=== PATIENT | male | born 1955 | race Caucasian/White ===

== ENCOUNTER → 2020-03-01 | Outpatient (CLI) | payer OTHER ==
[~2020-03-01] MED LIST: ASPI81TA26 PO; ATOR80TA59 PO; CLOP75TA2 PO; HYDR25TAB PO; LOSA50TA88 PO; MAG400TA PO; METF500T13 PO; METO100T5 PO; NICO21DI37 TD; OXYC1TAB23 PO; RANO10002 PO
== END ==
LOC: M LABSMTC 09:29
PROVIDERS: ATTEND Orthopaedic Surgery
DX: Z01.818 Encounter for other preprocedural examination (principal); Z11.59 Encounter for screening for other viral diseases
CPT/HCPCS: C9803; U0003

== ENCOUNTER 2020-03-06 11:58 | Day surgery (SDC) | payer OTHER ==
[~2020-03-06] VITALS: Ht 170.2 cm; Wt 82.6 kg
[2020-03-06] MEDS ORDERED: dexameTHASONE 10MG/1ML VIAL PRES.FREE (J1100 PER 1MG) ONE (11:59)
[2020-03-06] MEDS ORDERED: LIDOCAINE 1% MDV 20ML VIAL ONE (11:59)
[2020-03-06] MEDS ORDERED: ROPIvacaine 0.5% 30ML INJECTION (J2795 PER 1MG) ONE (11:59)
[2020-03-06] MEDS ORDERED: fentaNYL 100 MCG/2 ML INJECTION (J3010) As Ordered ONE ×2 (12:11→12:56)
[2020-03-06] MEDS ORDERED: LIDOCAINE 2% 100MG/5ML SDV (FOR ANES.) As Ordered ONE (12:11)
[2020-03-06] MEDS ORDERED: propofoL 200 MG/20 ML VIAL As Ordered ONE (12:11)
[2020-03-06] MEDS ORDERED: ROCURONIUM BROMIDE 50 MG/5 ML VIAL As Ordered ONE (12:11)
[2020-03-06] MEDS ORDERED: MIDAZOLAM INJ 2MG/2ML VIAL (J2250 PER 1MG) As Ordered ONE ×2 (12:11→12:56)
[2020-03-06] MEDS ORDERED: ALBUTEROL SULFATE 2.5 MG/0.5 ML INH NEB SOLN As Ordered ONE (12:43)
[2020-03-06] MEDS ORDERED: LR 1,000 ML IV ONE (12:45)
[2020-03-06] MEDS ORDERED: EPINEPHrine 1MG/ML INJ 30ML MD-VIAL As Ordered ONE (13:00)
[2020-03-06] MEDS ORDERED: ALBUTEROL SULFATE 2.5 MG/0.5 ML INH NEB SOLN INH ONE (13:00)
[2020-03-06] MEDS ORDERED: LIDOCAINE 1% MDV 20ML VIAL As Ordered ONE (13:17)
[2020-03-06] MEDS ORDERED: fentaNYL 100 MCG/2 ML INJECTION (J3010) IV ONE (13:30)
[2020-03-06] MEDS ORDERED: MIDAZOLAM INJ 2MG/2ML VIAL (J2250 PER 1MG) IV ONE (13:30)
[2020-03-06] MEDS ORDERED: ceFAZolin 2 GM/D5W 50 ML IV BAG (J0690 PER 500MG) As Ordered ONE (13:50)
[2020-03-06] MEDS ORDERED: PHENYLephrine HCL 500 MCG/5 ML (100MCG/ML) SYRINGE (J2370) As Ordered ONE (13:53)
[2020-03-06] MEDS ORDERED: ePHEDrine SULFATE 25 MG/5 ML(5MG/ML) SYRINGE As Ordered ONE ×2 (13:53→14:00)
[2020-03-06] MEDS ORDERED: GLYCOPYRROLATE INJ 0.2 MG/ML 2 ML VIAL As Ordered ONE (13:56)
[2020-03-06] MEDS ORDERED: METOCLOPRAMIDE INJ 10MG/2ML VIAL (J2765 PER 1) As Ordered ONE (14:01)
[2020-03-06] MEDS ORDERED: ONDANSETRON 4MG/2ML VIAL As Ordered ONE ×2 (14:01→14:22)
[2020-03-06] MEDS ORDERED: PHENYLEPHRINE 10MG/ML 1ML VIAL (J2370 PER 1) As Ordered ONE (15:06)
[2020-03-06] MEDS ORDERED: HYDROMORPHONE HCL 0.5 MG/ 0.5 ML SYRINGE (J1170 PER 1) IV PRN (17:00)
[2020-03-06] MEDS ORDERED: LR 1,000 ML IV SCH ×2 (17:00)
[2020-03-06] MEDS ORDERED: ONDANSETRON 4MG/2ML VIAL IV PRN (17:00)
[2020-03-06] MEDS ORDERED: fentaNYL 100 MCG/2 ML INJECTION (J3010) IV PRN (17:00)
[2020-03-06] MEDS: oxyCODONE 5MG TAB PO PRN ×2 (17:25→18:00)
--- NOTE | 2020-03-07 14:02 | REP ---
Single portable ap view of the left shoulder was obtained status post closed reduction. Previously described proximal humeral fracture has been reduced. The alignment is significantly improved. Electronically Signed by Maulik Brewer DO 03/07/2020 04:26 P
--- NOTE | 2020-07-01 07:19 | RO ---
DATE OF OPERATION: 03/06/2020 PREOPERATIVE DIAGNOSIS: Displaced left greater tuberosity fracture. POSTOPERATIVE DIAGNOSES: 1. Left shoulder arthrofibrosis. 2. Left shoulder displaced greater tuberosity fracture. 3. Left shoulder rotator cuff tear. PROCEDURES: 1. Left shoulder manipulation under anesthesia. 2. Open reduction and internal fixation of left greater tuberosity fracture. 3. Open left rotator cuff repair. SURGEON: Zhao Augustin MD ALMOND PASTE MOLDER: Kailash Zhou PA-C ANESTHESIA: General with preoperative nerve block. IV FLUIDS: Lactated Ringer's. ESTIMATED BLOOD LOSS: 50 mL. IMPLANTS: Arthrex PEEK SwiveLock anchor 4.75 mm x2 and 5.5 mm x2. CLOSURE: Nylon. DESCRIPTION OF PROCEDURE: The patient was identified in the preoperative holding area. The left shoulder was marked. He had an interscalene nerve block by anesthesia. He was brought to the operating room and placed supine on a well padded OR table. General anesthesia was induced. Time out was performed per hospital protocol. Examination under anesthesia revealed 70 degrees of forward flexion, no external rotation with the arm at his side, 10 degrees of external rotation of the shoulder at 80 of abduction. I then performed manipulation under anesthesia with forward flexion of the proximal humerus, slow and steady pressure. Several pops were felt and I was able to get the patient up to 150 degrees of forward flexion. From the forward flexed position the patient was dropped into external rotation, arm brought down to his side where additional pops were felt followed by adduction. The patient now had 150 degrees of forward flexion and he had 50 degrees of external rotation with his arm at his side, 60 degrees of external rotation with the shoulder at 90. He was then placed in the beachchair position, sat upright, the head was secured. Bilateral SCDs for DVT prophylaxis. He received appropriate IV antibiotics within 1 hour of incision. The left shoulder was then prepped and draped in normal sterile fashion with ChloraPrep and the left arm was placed into the Spider traction device. Time out was again performed. Kailash Zhou was present for the entire procedure; participated in all essential portions of the procedure. This included patient positioning and draping, holding retractors, assisting with the reduction manually and by tensioning sutures. He also assisted with anchor placement, suture retrieval and assisted with wound closure, applying the brace and dressing. A longitudinal incision was made with 15-blade starting just proximal to the anterolateral acromion and then extending distally. Dissection through the subcutaneous tissues with Metzenbaum scissors and electrocautery. The divide between the anterior and middle heads of the deltoid was identified and that plane was developed with electrocautery through the deep deltoid fascia. Underlying bursa and hematoma were encountered. Tagging stitch was placed 6 cm lateral and distal to the lateral edge of the acromion to red the location of the axillary nerve. Fracture hematoma was irrigated. Bursal tissue was excised with Metzenbaum scissors. Blunt finger dissection between the deep deltoid fascia and the proximal humerus and rotator cuff was then carried out posteriorly and anteriorly. Early soft callus at the fracture bed was encountered and that was gently debrided with rongeur and curet. The primary fracture fragment was not large enough to hold a screw and this was consistent with preoperative imaging and therefore I felt that this would be best repaired using double row rotator cuff repair technique where the fracture fragments were incorporated into the SpeedBridge. This would be an ORIF of the greater tuberosity involving the supraspinatus and open rotator cuff repair of the infraspinatus. The surgical field was then irrigated. The fracture fragment was carefully elevated and the humeral head articular cartilage identified and traction stitch was placed 2-0 FiberWire through the supraspinatus and lateral traction was used to gain control of that fracture fragment. The fracture was then able to be reduced. I placed two 4.75 mm PEEK SwiveLock anchors just off the articular surface into the fracture bed, one anterior, one further posterior. The Arthrex curve-free needle was then used to pass the islet sutures close to the tendon/bone junction in horizontal mattress fashion. The tape sutures were passed further medial through thicker rotator cuff tissue. These steps were repeated with the sutures from the posteromedial anchor except there was little bone to work with so the islet sutures were passed at the appropriate location and the tapes were also passed further medial to that. The fracture was then reduced with manual pressure on the fragment into the greater tuberosity fracture bed and then the islet sutures were tied by hand. These steps were repeated at the posterior islet sutures to set the medial edge of the repair. Those islet sutures combined with the tape sutures were then brought to further lateral on the tuberosity to determine appropriate location for lateral fixation and this was noted to nicely compress the fracture. The appropriate medial sutures were loaded through 5.5 mm PEEK SwiveLock anchor, an awl was used to create a socket on the anterolateral tuberosity. The anchor was docked, sutures tensioned, anchor inserted by hand with excellent fixation. These steps were repeated at the remaining sutures into second 5.5 anchor that was posterolateral also with excellent fixation. This completed the double row ORIF of the greater tuberosity essentially involving the supraspinatus and then the anterior half of the infraspinatus was an open rotator cuff repair. Shoulder was internally and externally rotated and the shoulder moved nicely as a unit. Incision was then extensively irrigated. The deep deltoid fascia was repaired with #0 Vicryl suture in [id number] fashion. Superficial deltoid fascia was repaired with #0 Vicryl suture in running fashion. Incision was then re- irrigated and then 2-0 subcuticular closure followed by running nylon. Sterile dressing was applied. He was carefully placed into ARC 2.0 sling. He was extubated, awoken from general anesthesia and transferred to PACU in stable condition. COMPLICATIONS: None. SANKET
== END 2020-03-06 18:20 | disposition home or self-care (01) ==
LOC: M SDC 11:58 → EDUNIT# 14:00 → M SDC 18:20
PROVIDERS: ATTEND Orthopaedic Surgery
DX: S42.252A Displaced fracture of greater tuberosity of left humerus, initial encounter for closed fracture (principal); S43.015A Anterior dislocation of left humerus, initial encounter; W19.XXXA Unspecified fall, initial encounter; Y92.89 Other specified places as the place of occurrence of the external cause; Y93.9 Activity, unspecified; Y99.9 Unspecified external cause status; I10 Essential (primary) hypertension; E78.5 Hyperlipidemia, unspecified; I25.2 Old myocardial infarction; Z98.61 Coronary angioplasty status; J44.9 Chronic obstructive pulmonary disease, unspecified; Z79.01 Long term (current) use of anticoagulants; E11.9 Type 2 diabetes mellitus without complications; G47.30 Sleep apnea, unspecified; Z79.84 Long term (current) use of oral hypoglycemic drugs; Z79.82 Long term (current) use of aspirin; Z79.899 Other long term (current) drug therapy; Z91.81 History of falling
CPT/HCPCS: 23410; 23630; 36415; 64415; 73020; 86850; 86900; 86901; C1713; J0690; J1100; J2250; J2370; J2405; J2765; J2795; J3010